=== PATIENT | female | born 1955 | race American Indian/Alaskan Native ===

== ENCOUNTER 2020-10-05 15:11 | Outpatient (CLI) | payer BC ==
--- NOTE | 2020-10-05 16:08 | Ultrasound Report ---
ULTRASOUND BREAST RIGHT LIMITED, 10/05/2020 CLINICAL INFORMATION / INDICATION: ABNORMAL MAMMO. Patient presents as a callback from screening mamm ogram for further evaluation of nodular densities in the right breast. TECHNIQUE: Targeted ultrasound evaluation was performed of the area of interest. COMPARISON: Prior mammogram 08/06/2020 FINDINGS: Corresponding with the nodular densities seen on recent mammogram, there is a 7 mm benign intramammar y lymph node seen in the right breast 10:00 position located 5 cm from the nipple with an adjacent in cidental 7 mm benign simple cyst, and an 8 mm cyst in the right breast 2:00 position located 3 cm fro m the nipple. No suspicious solid lesion identified. IMPRESSION: 1. Benign intramammary lymph node and benign cysts correspond with the nodular densities seen on rece nt mammogram. No suspicious sonographic abnormality identified. Follow up recommendation: Back to schedule. BI-RADS Category 2: Benign. A normal or "negative" report should not preclude biopsy or follow-up of a clinically suspicious find ing. Signer Name: Belia Steven MD Signed: 10/05/2020 4:03 PM Workstation Name: [id number]
== END 2020-10-05 15:12 | disposition home or self-care (01) ==
LOC: SPVWC 15:11
PROVIDERS: ATTEND Surgery
DX: N60.01 Solitary cyst of right breast (principal); R92.8 Other abnormal and inconclusive findings on diagnostic imaging of breast

== ENCOUNTER 2021-12-28 09:10 | Outpatient (CLI) | payer BC ==
--- NOTE | 2021-12-29 08:53 | Mammography Report ---
DIGITAL SCREENING MAMMOGRAM WITH CAD, 12/28/2021 CLINICAL INFORMATION / INDICATION: Routine screening mammography. TECHNIQUE: Digital bilateral 2D mammography was obtained in the craniocaudal and mediolateral obliqu e projections. This examination was interpreted with the benefit of Computer-Aided Detection analysis . COMPARISON: None 2019, 09/01/2019, 07/30/2018, 08/07/2018, 07/30/2018 FINDINGS: Breast Density: The breasts are heterogeneously dense, which may obscure small masses. No dominant mass, suspicious calcifications, or architectural distortion in either breast. Minimal circumscribed right breast nodularity is again noted and appears unchanged. There has been no significant interval change. IMPRESSION: No mammographic evidence of malignancy. Follow up recommendation: Routine yearly BI-RADS Category 2: BENIGN. A "normal" or negative report should not discourage follow up or biopsy of a clinically significant f inding. A written summary of these findings will be mailed to the patient. The patient will be entered into a mammography reporting system which will generate a reminder letter for the patient's next appointmen t at the appropriate interval. The [employer] recommends yearly mammograms starting at age 40 and continuing as l cam as a woman is in good health. Breast MRI is recommended for women with an approximate 20-25% or greater lifetime risk of breast cancer, including women with a strong family history of breast or ova shireen cancer or who have been treated for Hodgkin's disease. Signer Name: Jocelyn Kirkland MD Signed: 12/29/2021 8:49 AM Workstation Name: [id number]
== END 2021-12-28 09:11 | disposition home or self-care (01) ==
LOC: SPVWC 09:10
PROVIDERS: ATTEND Surgery
DX: Z12.31 Encounter for screening mammogram for malignant neoplasm of breast (principal); N64.89 Other specified disorders of breast
CPT/HCPCS: 77067